=== PATIENT | male | born 1945 | race Caucasian/White ===

== ENCOUNTER 2019-05-06 20:10 | Emergency (ER) | payer OTHER ==
[~2019-05-06] VITALS: Ht 170.2 cm; Wt 89.8 kg
[2019-05-06 22:25] LABS: Urine Bacteria NONE SEEN /hpf (None Seen); Urine Blood Negative /uL (Negative); Urine Mucus FEW (None Seen); Urine Specific Gravity 1.021 (1.001-1.035); Urine WBC 1 /hpf (0 - 3)
[2019-05-06 22:40] LABS: Basophils # (auto) 0.1 uL; Basophils % (auto) 0.4 % (0.0-2.0); Eosinophils # (auto) 0 uL; Eosinophils % (auto) 0.1 % (0.0-7.0); Hematocrit 45.6 % (41.0-53.0); Hemoglobin 15.4 g/dL (13.5-17.5); Lymphocytes # (auto) 1.2 uL; Lymphocytes % (auto) 7.2 % (10.0-50.0); Mean Corpuscular Hemoglobin 30.5 pg (28.0-32.0); Mean Corpuscular Hgb Conc. 33.7 g/dL (32.0-36.0); Mean Corpuscular Volume 90.6 fL (80.0-100.0); Monocytes # (auto) 1.3 uL; Monocytes % (auto) 7.8 % (0.0-12.0); Neutrophils # (auto) 13.6 uL; Neutrophils % (auto) 84.5 % (37.0-80.0); Nucleated Red Blood Cells % 0.1 %; Platelet Count (auto) 167 10^3/uL (140-450); Red Blood Cells 5.04 10^6/uL (4.5-5.90); Red Cell Distribution Width 13.7 % (11.8-14.3); White Blood Cell 16.1 10^3/uL (4.4-10.8)
[2019-05-06 22:59] LABS: Albumin 4.1 g/dL (3.4-5.0); BUN/Creatinine Ratio 15.7; Calcium 9.1 mg/dL (8.5-10.1); Potassium 4.5 mmol/L (3.5-5.1)
[2019-05-06 23:02] LABS: Bilirubin, Total 1.1 mg/dL (0.2-1.0)
[2019-05-07] MEDS: SODIUM CHLORIDE 0.9% 1,000 ML IV ONE ×2 (01:12→02:01)
[2019-05-07] MEDS: PIPERACILLIN-TAZOB 3.375GM 100 ML IV ONE (01:13)
[2019-05-07 01:34] LABS: INR 1.11 (0.9-1.15); Partial Thromboplastin Time 28.9 sec (23.64-32.05)
[2019-05-07 06:08] VITALS: BP 104/52
== END 2019-05-07 06:29 | disposition home or self-care (01) ==
LOC: ER 20:15
DX: K37 Unspecified appendicitis (principal); K59.00 Constipation, unspecified; I10 Essential (primary) hypertension
CPT/HCPCS: 36415; 74176; 80053; 81001; 83690; 85025; 85610; 85730; 87040; 93005; 96365; 99285; J2543